=== PATIENT | male | born 1995 | race Caucasian/White ===

== ENCOUNTER 2017-07-22 07:17 | Day surgery (SDC) | payer OTHER ==
[2017-07-22] MEDS ORDERED: PROPOFOL 200 MG/20 ML VIAL As Ordered (08:13)
[2017-07-22] MEDS ORDERED: ONDANSETRON 4MG/2ML VIAL (J2405) As Ordered ×2 (08:13→13:47)
[2017-07-22] MEDS ORDERED: ROCURONIUM BROMIDE 50 MG/5 ML VIAL As Ordered (08:13)
[2017-07-22] MEDS ORDERED: fentaNYL 250 MCG/5 ML INJECTION (J3010) As Ordered (08:13)
[2017-07-22] MEDS ORDERED: LIDOCAINE 2% INJ 100 MG/5 ML SDV (FOR ANES.) As Ordered (08:13)
[2017-07-22] MEDS ORDERED: MIDAZOLAM INJ 2 MG/2 ML VIAL (J2250) As Ordered (08:13)
[2017-07-22] MEDS ORDERED: dexameTHASONE 4 MG/ML 1ML VIAL (J1100) As Ordered (08:13)
[2017-07-22] MEDS: LR 1,000 ML IV (08:31)
[2017-07-22] MEDS: BUPIVACAINE HCL 0.5% 30 ML VIAL As Ordered (08:39)
[2017-07-22] MEDS: LIDOCAINE 2% MDV 20 ML VIAL As Ordered (08:39)
[2017-07-22] MEDS ORDERED: GLYCOPYRROLATE INJ 0.2 MG/ML 2 ML VIAL As Ordered ×2 (09:45→10:36)
[2017-07-22] MEDS: dexameTHASONE 4 MG/ML 1ML VIAL (J1100) As Ordered (09:59)
[2017-07-22] MEDS ORDERED: ePHEDrine SULFATE 25 MG/5 ML(5MG/ML) SYRINGE As Ordered (10:03)
[2017-07-22] MEDS: BACITRACIN PWD 50,000 UNITS VIAL As Ordered (10:03)
[2017-07-22] MEDS ORDERED: HYDROmorphone HCL 2 MG/ML 1ML VIAL (J1170) As Ordered (10:36)
[2017-07-22] MEDS ORDERED: NEOSTIGMINE 10 MG/10 ML VIAL (J2710) As Ordered (10:36)
[2017-07-22] MEDS ORDERED: PERCOCET 5MG/325MG TAB PO (13:45)
[2017-07-22] MEDS: ONDANSETRON 4MG/2ML VIAL (J2405) IV (13:50)
[2017-07-22] MEDS ORDERED: diazePAM 5 MG TAB As Ordered (15:01)
[2017-07-22] MEDS: diazePAM 5 MG TAB PO (15:10)
== END 2017-07-22 16:15 | disposition home or self-care (01) ==
LOC: M SDC 07:17
DX: M21.6X1 Other acquired deformities of right foot (principal); M20.5X1 Other deformities of toe(s) (acquired), right foot
CPT/HCPCS: 29893

== ENCOUNTER 2017-08-15 09:49 | Emergency (ER) | payer OTHER ==
[2017-08-15] MEDS: predniSONE 20 MG TAB PO (10:17)
[2017-08-15] MEDS: diphenhydrAMINE 50 MG CAP PO (10:18)
== END 2017-08-15 12:00 | disposition home or self-care (01) ==
LOC: M ED 09:49
DX: T78.40XA Allergy, unspecified, initial encounter (principal); Y92.9 Unspecified place or not applicable; Y93.9 Activity, unspecified
CPT/HCPCS: 99283